=== PATIENT | female | born 1955 | race Caucasian/White ===

== ENCOUNTER 2016-08-27 12:04 | Emergency (ER) | payer OTHER ==
[~2016-08-27] VITALS: Ht 152.4 cm; Wt 73.1 kg
[~2016-08-27 12:04] MED LIST: ALPR.25T PO; ALPR.5T PO; BUTT50CA PO; CEPH500C PO; HYDR-3702 PO; MPR22TI TOP; MTP50T PO; PRX20T PO; TR1C15; TRAZ100T92 PO
[2016-08-27 12:41] LABS: BASOPHILS % (AUTO) 1 % (0-2); EOSINOPHILS # (AUTO) 0.1 10^3uL; EOSINOPHILS % (AUTO) 2 % (0-4); LYMPHOCYTES # (AUTO) 2.1 X10^3; MEAN CORPUSCULAR HEMOGLOBIN 28.9 PG (26.0-34.0); MEAN CORPUSCULAR HGB CONC 34.5 g/dL (31.0-37.0); MEAN CORPUSCULAR VOLUME 84 FL (80-100); MEAN PLATELET VOLUME 10.4 FL (6.0-9.5); MONOCYTES # (AUTO) 0.6 X10^3; MONOCYTES % (AUTO) 9 % (3-11); NEUTROPHILS # (AUTO) 4.3 X10^3; NEUTROPHILS % (AUTO) 59 % (51-67); PLATELET COUNT 229 10^3uL (150-450); WHITE BLOOD COUNT 7.16 10^3uL (4.0-11.0)
[2016-08-27 12:42] LABS: BILIRUBIN,URINE Negative (Negative); CLARITY,URINE Clear; COLOR,URINE Yellow; GLUCOSE, URINE (UA) Negative (Negative); LEUKOCYTE ESTERASE ,URINE Negative (Negative); PH,URINE 8.5 (5.0 - 8.0); UROBILINOGEN,URINE 0.2 mg/dL (0.2-1.0)
[2016-08-27 13:11] LABS: AMPHETAMINE SCREEN, URINE Negative (Negative); CANNABINOID SCREEN, URINE Negative (Negative); METHAMPHETAMINE SCREEN URINE S NEGATIVE (NEGATIVE); OPIATE SCREEN URINE Negative (Negative); PROPOXYPHENE STAT NEGATIVE (NEGATIVE)
[2016-08-27 13:38] LABS: ALBUMIN 4.1 g/dL (3.4-5.0); ANION GAP 15.4 MEQ/L (3-15); TOTAL PROTEIN 7.2 g/dL (6.4-8.5)
--- NOTE | 2016-08-27 13:46 | NUR ---
pt resting comfortable
[2016-08-27] MEDS ORDERED: LTRS15C EXT (13:55)
[2016-08-27] MEDS ORDERED: HYDR-3702 PO (13:55)
[2016-08-27 14:05] VITALS: BP 147/89
--- NOTE | 2016-08-27 14:34 | Diagnostic Imaging Report ---
INDICATION: Chronic constipation, right lower quadrant pain. COMPARISON: Radiographs of the chest dated April 14, 2016. TECHNIQUE: Three radiographs of the abdomen and chest dated August 27, 2016. FINDINGS: The cardiac silhouette is within normal limits. No significant pulmonary vascular congestion. The lungs are clear. No pleural effusion. No pneumothorax. No acute osseous abnormality. Gas and stool is noted throughout the colon, including extending to the lower pelvis. No dilated loops of small bowel. No differential air-fluid levels. No free air. Multiple phleboliths within the lower pelvis. No suspicious calcifications overlying the renal shadows. Scattered osseous degenerative changes without acute osseous abnormality. IMPRESSION: No acute abnormality identified with additional findings, as above. Dictated by: Dictated on workstation # [id number]
== END 2016-08-27 14:06 | disposition home or self-care (01) ==
LOC: ED 12:05
DX: L30.8 Other specified dermatitis (principal); K59.00 Constipation, unspecified
CPT/HCPCS: 36415; 51798; 74022; 80053; 80307; 81003; 82150; 83605; 83690; 84443; 85025; 86140; 99283; 99284